=== PATIENT | male | born 1980 | race American Indian/Alaskan Native ===

== ENCOUNTER 2017-12-17 19:16 | Emergency (ER) | payer SELFPAY ==
[2017-12-17 19:56] VITALS: BP 109/71
[2017-12-17 21:06] LABS: Bacteria,Urine 1+ /HPF (Negative); Bilirubin,Urine NEG (Negative); Blood,Urine NEG (Negative); Color,Urine Yellow (Yellow); Protein,Urine <15 mg/dL mg/dL (Negative); Urobilinogen,Urine < 2.0 mg/dL (<2.0)
--- NOTE | 2017-12-18 02:28 | Emergency Department Report ---
ED Male HPI - General Chief complaint: Urogenital-Male Stated complaint: PENILE D/C Time Seen by Provider: 12/18/17 02:27 Source: patient Mode of arrival: Ambulatory Limitations: No Limitations - History of Present Illness Initial comments: 36-year-old -[place] male comes in complaining of penile discharge for 1 week. Patient reports is also having pain between his testicle and anus. Patient reports that he is sexually active with women unprotected. Patient denies any fever or chills no nausea no vomiting. He reports he has allergy to penicillin but has had Rocephin in the past. MD Complaint: penile discharge Improves with: none Worsens with: none - Related Data Previous Rx's Medication Instructions Recorded Last Taken Type Ciprofloxacin HCl [Ciprofloxacin 500 mg PO Q12HR #20 tab 12/18/17 Unknown Rx TAB] metroNIDAZOLE [Flagyl TAB] 500 mg PO Q8H #21 tab 12/18/17 Unknown Rx traMADol [Ultram 50 MG tab] 50 mg PO Q8H PRN #20 tablet 12/18/17 Unknown Rx Allergies Allergy/AdvReac Type Severity Reaction Status Date / Time Penicillins Allergy Anaphylaxis Verified 09/18/15 01:47 ED Review of Systems ROS: Stated complaint: PENILE D/C Other details as noted in HPI Constitutional: denies: chills, fever Eyes: denies: eye pain, eye discharge, vision change ENT: denies: ear pain, throat pain Respiratory: denies: cough, shortness of breath, wheezing Cardiovascular: denies: chest pain, palpitations Endocrine: no symptoms reported Gastrointestinal: denies: abdominal pain, nausea, diarrhea Genitourinary: discharge, other (pain perineum) Musculoskeletal: denies: back pain, joint swelling, arthralgia Skin: denies: rash, lesions Neurological: denies: headache, weakness, paresthesias Psychiatric: denies: anxiety, depression Hematological/Lymphatic: as per HPI ED Past Medical Hx - Past Medical History Previous Medical History?: No - Surgical History Past Surgical History?: No - Social History Smoking Status: Current Every Day Smoker Substance Use Type: Marijuana - Medications Home Medications: Home Medications Medication Instructions Recorded Confirmed Last Taken Type Ciprofloxacin HCl [Ciprofloxacin 500 mg PO Q12HR #20 tab 12/18/17 Unknown Rx TAB] metroNIDAZOLE [Flagyl TAB] 500 mg PO Q8H #21 tab 12/18/17 Unknown Rx traMADol [Ultram 50 MG tab] 50 mg PO Q8H PRN #20 tablet 12/18/17 Unknown Rx ED Physical Exam - General Limitations: No Limitations General appearance: alert, in no apparent distress - Eye Eye exam: Present: normal appearance - ENT ENT exam: Present: mucous membranes moist - Neck Neck exam: Present: normal inspection - Respiratory Respiratory exam: Present: normal lung sounds bilaterally. Absent: respiratory distress - Cardiovascular Cardiovascular Exam: Present: regular rate, normal rhythm. Absent: systolic murmur, diastolic murmur, rubs, gallop - GI/Abdominal GI/Abdominal exam: Present: soft, normal bowel sounds - Rectal Rectal exam: Present: prostate enlargement, other (tenderness in the perineum with palpitation) - exam: Present: urethral discharge, circumcision. Absent: testicular tenderness, scrotal swelling External exam: Present: normal external exam - Extremities Exam Extremities exam: Present: normal inspection - Back Exam Back exam: Present: normal inspection - Neurological Exam Neurological exam: Present: alert, oriented X3 - Psychiatric Psychiatric exam: Present: normal affect, normal mood - Skin Skin exam: Present: warm, dry, intact, normal color. Absent: rash ED Course Vital Signs 12/17/17 19:51 Temperature 98.5 F Pulse Rate 98 H Respiratory 16 Rate Blood Pressure 109/71 O2 Sat by Pulse 99 Oximetry ED Medical Decision Making - Medical Decision Making Patient has been evaluated by this provider fast track. I discussed the patient we will treat him for STDs as well as prostatitis. Discussed the patient he needs to follow-up with the primary care provider as well as a health department for further testing. Critical care attestation.: If time is entered above; I have spent that time in minutes in the direct care of this critically ill patient, excluding procedure time. ED Disposition Clinical Impression: Potential exposure to STD, Dysuria Disposition: DC-01 TO HOME OR SELFCARE Is pt being admited?: No Does the pt Need Aspirin: No Condition: Stable Instructions: Sexually Transmitted Diseases (ED), Safe Sex (ED), Prostatitis ( ED) Additional Instructions: Please complete antibiotics as prescribed. Please follow-up with the health department for further testing. Prescriptions: Ciprofloxacin HCl [Ciprofloxacin TAB] 500 mg PO Q12HR #20 tab metroNIDAZOLE [Flagyl TAB] 500 mg PO Q8H #21 tab traMADol [Ultram 50 MG tab] 50 mg PO Q8H PRN #20 tablet PRN Reason: Pain Referrals: PRIMARY CARE, [Primary Care Provider] - 3-5 Days Forms: Work/School Release Form(ED)
[2017-12-18] MEDS ORDERED: XYLOCAINE 1% MPF 5 mL INFILTRATI ONE (02:31)
[2017-12-18] MEDS ORDERED: ROCEPHIN IM ONE (02:31)
[2017-12-18] MEDS ORDERED: MOTRIN PO ONE (02:32)
[2017-12-18] MEDS ORDERED: ZITHROMAX ONE (02:52)
[2017-12-18] MEDS ORDERED: ZITHROMAX PO ONE ×2 (02:57→02:59)
== END 2017-12-18 03:30 | disposition home or self-care (01) ==
LOC: ED 19:16
DX: Z20.2 Contact with and (suspected) exposure to infections with a predominantly sexual mode of transmission (principal); R30.0 Dysuria; R36.9 Urethral discharge, unspecified; F17.200 Nicotine dependence, unspecified, uncomplicated; F12.10 Cannabis abuse, uncomplicated; Z88.0 Allergy status to penicillin
CPT/HCPCS: 81001; 96372; 99283; J0696

== ENCOUNTER 2022-01-12 01:47 | Emergency (ER) | payer SELFPAY ==
[2022-01-12 03:26] VITALS: BP 114/45
[2022-01-12] MEDS ORDERED: ACETAMINOPHEN 325 MG TAB PO ONE (03:26)
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
[2022-01-12] MEDS ORDERED: KETOROLAC 10 MG TAB PO ONE (05:35)
[2022-01-12] MEDS ORDERED: ACETAMINOPHEN W/CODEINE 300-30 MG TAB PO ONE (05:35)
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
== END 2022-01-12 08:04 | disposition home or self-care (01) ==
LOC: ED 01:47
DX: S16.1XXA Strain of muscle, fascia and tendon at neck level, initial encounter (principal); S90.512A Abrasion, left ankle, initial encounter; M25.572 Pain in left ankle and joints of left foot; M54.50 Low back pain, unspecified; F17.200 Nicotine dependence, unspecified, uncomplicated; Z88.0 Allergy status to penicillin; V89.2XXA Person injured in unspecified motor-vehicle accident, traffic, initial encounter; Y93.89 Activity, other specified; Y92.89 Other specified places as the place of occurrence of the external cause; Y99.8 Other external cause status
CPT/HCPCS: 72040; 72170; 99283